=== PATIENT | female | born 1945 | race Caucasian/White ===

== ENCOUNTER → 2016-10-25 | Outpatient (CLI) | payer OTHER | LOC: BMCIMAGING 10:30 | DX: E04.1 Nontoxic single thyroid nodule (principal); E89.0 Postprocedural hypothyroidism | CPT/HCPCS: 76536-PO; G0202 ==

== ENCOUNTER → 2017-12-03 | Outpatient (CLI) | payer OTHER | LOC: BMCIMAGING 15:23 | PROVIDERS: ATTEND Internal Medicine Endocrinology, Diabetes & Metabolism | DX: Z13.820 Encounter for screening for osteoporosis (principal); M81.0 Age-related osteoporosis without current pathological fracture; E03.9 Hypothyroidism, unspecified; Z78.0 Asymptomatic menopausal state; Z79.899 Other long term (current) drug therapy ==

== ENCOUNTER → 2018-11-27 | Outpatient (CLI) | payer OTHER | LOC: FIMAGING 15:04 | PROVIDERS: ATTEND Midwife | DX: R14.0 Abdominal distension (gaseous) (principal); D25.1 Intramural leiomyoma of uterus ==